=== PATIENT | male | born 1975 | race Two or more races ===

== ENCOUNTER 2019-02-04 09:20 | Outpatient (CLI) | payer MEDICAID ==
[~2019-02-04] VITALS: Ht 193 cm; Wt 140.2 kg
[2019-02-04 12:12] VITALS: BP 132/85
[2019-02-04] MEDS ORDERED: AMLODIPINE BESYL5 MG ORAL (12:12)
[2019-02-04] MEDS ORDERED: CHOLESTEROL MED (12:12)
[2019-02-04] MEDS ORDERED: TRUVADA 200 MG1 EAC1 ORAL (12:12)
--- NOTE | 2019-02-04 15:45 | Consultation ---
DATE OF CONSULTATION: 02/04/2019 GASTROENTEROLOGY CONSULTATION CONSULTING PHYSICIAN: Rodrigo Alcantar M.D. CHIEF COMPLAINT: Referral for colonoscopy for rectal bleeding. HISTORY OF PRESENT ILLNESS: This is a 43-year-old patient who currently had a episode of diverticulitis who was treated with antibiotics, but never had a colonoscopy . Also, on and off, having some bright red blood per rectum, so the patient was referred for colonoscopy. PAST MEDICAL HISTORY: 1. Hypertension. 2. Diverticulitis. PAST SURGICAL HISTORY: Appendectomy. MEDICATIONS: Amlodipine, Truvada, cholesterol medication. ALLERGIES: No known allergies. FAMILY HISTORY: Father had prostate cancer and mother had bladder cancer. SOCIAL HISTORY: The patient smokes, but quit in 2018. Drinks socially. No IV drug abuse. REVIEW OF SYSTEMS: Positive for abdominal pain, rectal bleeding. PHYSICAL EXAMINATION: VITAL SIGNS: Temperature 98.1, blood pressure 120/85, pulse , respirations 20. HEENT: Normocephalic and atraumatic. Sclerae anicteric. NECK: Supple. No evidence of obvious lymphadenopathy. CARDIOVASCULAR: Regular rate and rhythm. Plus S1 and S2. LUNGS: Clear to auscultation bilaterally. ABDOMEN: Positive bowel sounds. Soft and nontender. No rebound. No guarding. No peritoneal sign. EXTREMITIES: No cyanosis. No clubbing. No edema ASSESSMENT: The patient is a 43-year-old male with rectal bleeding, history of recent diverticulitis, status post treatment, needs colonoscopy to follow. PLAN: To schedule him when authorization is obtained. The patient was informed of the risks and benefits of procedure and the prep was given to him, pending authorization. Rodrigo Alcantar M.D. DR: EDWARD JOB#: [id number] CC:
== END 2019-02-04 11:20 | disposition home or self-care (01) ==
LOC: PAN 09:20
DX: K62.5 Hemorrhage of anus and rectum (principal); I10 Essential (primary) hypertension; Z90.89 Acquired absence of other organs; Z79.899 Other long term (current) drug therapy; Z87.891 Personal history of nicotine dependence; R10.9 Unspecified abdominal pain; K57.90 Diverticulosis of intestine, part unspecified, without perforation or abscess without bleeding